=== PATIENT | female | born 1955 | race Caucasian/White ===

== ENCOUNTER 2017-03-27 08:47 | Emergency (ER) | payer BC ==
--- NOTE | 2017-03-27 09:40 | UC ---
mary Ramirez Timothy, scribed for Gunnar Cohen MD on 03/27/17 at 0911 . Palpitation/Dysrhythmia HP - HPI Summary HPI Summary: Claire Barrett is a 61 yo female presenting to [facility] with intermittent pounding heart palpitations since 03/22/17, resolved by "massaging it out". She notes that it seems worse at night. She takes atenolol 25 mg qd, and has taken 75 the past 2 nights. She also is on lisinopril 10mg qd. Last night she could not sleep because of this. She states she feels like she pulled a muscle in her left chest, and has muscle soreness which she feels with deep breaths. She notes her blood pressure has been increased since 03/23/17. She notes that she has been doing a lot of biking this summer, and notes that the exertion may contribute to her Sx. She states she has been under a lot of stress lately with her family. Her MHx includes HTN, hepatitis. - History of Current Complaint Stated Complaint: HEART RACING Time Seen by Provider: 03/27/17 09:26 Hx Obtained From: Patient Onset/Duration: Sudden Onset, Lasting Days Timing: Intermittent Episodes Lasting: Severity Initially: Moderate Severity Currently: Moderate Character: Fast, Pounding Associated Signs & Symptoms: Positive: Chest Pain - Allergy/Home Medications Allergies/Adverse Reactions: Allergies Allergy/AdvReac Type Severity Reaction Status Date / Time No Known Allergies Allergy Verified 03/27/17 09:04 Home Medications: Home Medications Atenolol TAB* [Tenormin TAB* 25 MG] 25 mg PO DAILY 03/27/17 [History Confirmed 03/27/17] Diphenhydramine HCl [Benadryl Allergy 25 MG CAP] 1 tab PO BEDTIME PRN 03/27/17 [ History Confirmed 03/27/17] Lisinopril [Zestril 10 MG-] 10 mg PO DAILY 03/27/17 [History Confirmed 03/27/17] PMH/Surg Hx/FS Hx/Imm Hx - Additional Past Medical History Additional PMH: hepatitis Cardiovascular History: Hypertension - Surgical History Surgical History: Yes Surgery Procedure, Year, and Place: knee surgery - Family History Known Family History: Positive: Cardiac Disease, Hypertension, Other - CVA - Social History Alcohol Use: None Substance Use Type: None Smoking Status (MU): Former Smoker When Did the Patient Quit Smoking/Using Tobacco: quit 27 yrs ago Review of Systems Constitutional: Negative Skin: Negative Eyes: Negative ENT: Negative Respiratory: Negative Cardiovascular: Palpitations, Chest Pain - "muscle soreness", Other - high blood pressure Gastrointestinal: Negative Genitourinary: Negative Motor: Negative Neurovascular: Negative Musculoskeletal: Negative Neurological: Negative Psychological: Negative All Other Systems Reviewed And Are Negative: Yes Physical Exam Triage Information Reviewed: Yes Vital Signs: Initial Vital Signs Pulse 55 03/27/17 08:59 Resp 16 03/27/17 08:59 BP 145/90 03/27/17 08:59 Pulse Ox 100 03/27/17 08:59 Vital Signs Reviewed: Yes - Additional Comments The patient is well-nourished in no acute distress and in no acute pain. The skin is warm and dry and skin color reflects adequate perfusion. HEENT: The head is normocephalic and atraumatic. The pupils are equal and reactive. The conjunctivae are clear and without drainage. Nares are patent and without drainage. Mouth reveals moist mucous membranes and the throat is without erythema and exudate. The external ears are intact. The ear canals are patent and without drainage. The tympanic membranes are intact. Neck is supple with full range of motion and non-tender. There are no carotid bruits. There is no neck vein distension. Respiratory: Chest is non-tender. Lungs are clear to auscultation and breath sounds are symmetrical and equal. Cardiovascular: Heart is regular rate and rhythm. There is no murmur or rub auscultated. There is no peripheral edema and pulses are symmetrical and equal. Abdomen: The abdomen is soft and non-tender. There are normal bowel sounds heard in all four quadrants and there is no organomegaly palpated. Musculoskeletal: There is no back pain noted. Extremities are non-tender with full range of motion. There is good capillary refill. There is no peripheral edema or calf tenderness elicited. Neurological: Patient is alert and oriented to person, place and time. The patient has symmetrical motor strength in all four extremities. Cranial nerves are grossly intact. Deep tendon reflexes are symmetrical and equal in all four extremities. Psychiatric: The patient has an appropriate affect and does not exhibit any anxiety or depression. Diagnostics - EKG Cardiac Rate: Bradycardia - 0849: sinus bradycardia at 59 BPM, no ST elevation, no ectopy, no STEMI Palpitations Course/Dx - Course Course Of Treatment: Claire Barrett is a 61 yo female presenting to [facility] with intermittent heart palpitations since 03/22/17, resolved by "massaging it out". Pt medication list reviewed this visit. Pt BP noted at 145/90. Her EKG suggests sinus bradycardia and no STEMI. Explained to Pt that we do not have capabilty to monitor or draw labs at urgent care/ Because of this, Pt advised to trasnfer to [facility] which she is agreeable to. EMS offered for transport which she declines. She will be transferred to [facility] by private car. - Differential Dx/Diagnosis Differential Diagnosis/HQI/PQRI: Coronary Artery Disease, Hypokalemia, Paroxymal SVT, Other - palpitations, hypertension Provider Diagnoses: palpitations, hypertension, chest pain Discharge - Discharge Plan Condition: Stable Disposition: TRANS HIGHER LVL OF CARE FAC Discharge Disposition Comment: transfer to [facility] by private car The documentation as recorded by the mary lowry Timothy accurately reflects the service I personally performed and the decisions made by me, Gunnar Cohen MD.
[2017-03-27 09:50] VITALS: BP 156/86
== END 2017-03-27 09:44 | disposition short-term general hospital (02) ==
LOC: UCEAST 08:47
DX: R00.2 Palpitations (principal); I10 Essential (primary) hypertension; R07.9 Chest pain, unspecified
CPT/HCPCS: 93005; 99203; G0463

== ENCOUNTER → 2017-03-27 10:55 | Emergency (ER) | payer BC ==
[2017-03-27 14:07] VITALS: BP 166/86
== END | disposition left against medical advice (07) ==
LOC: ED 10:55
DX: I10 Essential (primary) hypertension (principal); Z53.21 Procedure and treatment not carried out due to patient leaving prior to being seen by health care provider